=== PATIENT | female | born 1945 | race Two or more races ===

== ENCOUNTER 2018-03-16 09:14 | Outpatient (CLI) | payer OTHER | END 2018-03-16 09:33 | disposition home or self-care (01) | LOC: MAMO-SONO 09:14 → NUCLEAR 14:30 | DX: Z12.31 Encounter for screening mammogram for malignant neoplasm of breast (principal); Z87.898 Personal history of other specified conditions; N61.0 Mastitis without abscess; E04.1 Nontoxic single thyroid nodule ==

== ENCOUNTER → 2018-07-04 | Emergency (ER) | payer OTHER | END | disposition left against medical advice (07) | LOC: ER 11:19 | DX: Z53.20 Procedure and treatment not carried out because of patient's decision for unspecified reasons (principal) ==

== ENCOUNTER 2019-06-06 10:38 | Outpatient (CLI) | payer OTHER | END 2019-06-06 15:03 | disposition home or self-care (01) | LOC: MAMO-SONO 10:38 → EDBD 13:15 → MAMO-SONO 13:15 | DX: Z12.31 Encounter for screening mammogram for malignant neoplasm of breast (principal); Z87.898 Personal history of other specified conditions; E04.1 Nontoxic single thyroid nodule; Z09 Encounter for follow-up examination after completed treatment for conditions other than malignant neoplasm ==

== ENCOUNTER 2019-06-06 11:13 | Outpatient (CLI) | payer OTHER | END 2019-06-06 11:15 | disposition home or self-care (01) | LOC: NUCLEAR 11:13 | DX: M81.0 Age-related osteoporosis without current pathological fracture (principal); M85.80 Other specified disorders of bone density and structure, unspecified site ==

== ENCOUNTER 2020-12-24 09:52 | Outpatient (CLI) | payer OTHER | END 2020-12-24 10:04 | disposition home or self-care (01) | LOC: MAMO-SONO 09:52 | PROVIDERS: ATTEND Internal Medicine Endocrinology, Diabetes & Metabolism | DX: E04.1 Nontoxic single thyroid nodule (principal); Z12.31 Encounter for screening mammogram for malignant neoplasm of breast ==

== ENCOUNTER 2021-07-09 12:12 | Outpatient (CLI) | payer OTHER | END 2021-07-09 12:15 | disposition home or self-care (01) | LOC: NUCLEAR 12:12 | PROVIDERS: ATTEND Internal Medicine Endocrinology, Diabetes & Metabolism | DX: M81.0 Age-related osteoporosis without current pathological fracture (principal) ==

== ENCOUNTER 2022-01-11 11:19 | Outpatient (CLI) | payer OTHER | END 2022-01-11 12:09 | disposition home or self-care (01) | LOC: RAD 11:19 | PROVIDERS: ATTEND Orthopaedic Surgery Sports Medicine | DX: M25.561 Pain in right knee (principal); M25.562 Pain in left knee ==

== ENCOUNTER 2022-10-05 10:26 | Outpatient (CLI) | payer OTHER | END 2022-10-05 10:33 | disposition home or self-care (01) | LOC: MAMO-SONO 10:26 | PROVIDERS: ATTEND General Practice | DX: Z12.31 Encounter for screening mammogram for malignant neoplasm of breast (principal) ==

== ENCOUNTER 2024-01-04 10:35 | Emergency (ER) | payer OTHER ==
[~2024-01-04] VITALS: Ht 157.5 cm; Wt 73.5 kg
[2024-01-04] MEDS ORDERED: LOTREL 10-20 M1 EACH (10:52)
[2024-01-04] MEDS ORDERED: LIPITOR20 MG (10:53)
[2024-01-04] MEDS ORDERED: SINGULAIR10 MG (10:53)
[2024-01-04] MEDS ORDERED: SYMBICORT 80/10.2 GM (10:53)
[2024-01-04] MEDS ORDERED: SYNTHROID100 MCG (10:54)
[2024-01-04] MEDS ORDERED: INDERAL XL80 MG (10:54)
[2024-01-04] MEDS ORDERED: KETOROLAC TROMETHAMINE 60 MG VIAL IM STA (12:10)
== END 2024-01-04 14:01 | disposition home or self-care (01) ==
LOC: ER 10:36
DX: S92.355A Nondisplaced fracture of fifth metatarsal bone, left foot, initial encounter for closed fracture (principal); S90.32XA Contusion of left foot, initial encounter; X58.XXXA Exposure to other specified factors, initial encounter; Y93.89 Activity, other specified; Y92.89 Other specified places as the place of occurrence of the external cause; E03.9 Hypothyroidism, unspecified; I10 Essential (primary) hypertension; S90.31XA Contusion of right foot, initial encounter; M17.11 Unilateral primary osteoarthritis, right knee

== ENCOUNTER 2024-03-15 12:48 | Outpatient (CLI) | payer OTHER ==
[~2024-03-15 12:48] MED LIST: INDERAL XL80 MG; LIPITOR20 MG; LOTREL 10-20 M1 EACH; SINGULAIR10 MG; SYMBICORT 80/10.2 GM; SYNTHROID100 MCG
== END 2024-03-15 12:51 | disposition home or self-care (01) ==
LOC: NUCLEAR 12:48
PROVIDERS: ATTEND General Practice
DX: M85.80 Other specified disorders of bone density and structure, unspecified site (principal); M81.0 Age-related osteoporosis without current pathological fracture